=== PATIENT | female | born 1985 | race American Indian/Alaskan Native ===

== ENCOUNTER 2021-01-20 12:45 | Day surgery (SDC) | payer OTHER ==
[~2021-01-20 12:45] MED LIST: ACETAMINOPHEN 500 MG TAB PO SCH; BUPIVACAINE/PF (0.5%) 5 MG/1 ML 30 ML VIAL INFILTRATI ONE; LACTATED RINGERS 1,000 ML IV SCH; MIDAZOLAM 2 MG/2 ML INJ IV NR; SODIUM CHLORIDE 0.9% IRR 1,500 ML BOTTLE IR ONE
[2021-01-20] MEDS ORDERED: BUPIVACAINE/PF (0.5%) 5 MG/1 ML 30 ML VIAL INFILTRATI ONE ×2 (13:02→14:36)
[2021-01-20] MEDS ORDERED: SCOPOLAMINE TRANSDERMAL PATCH 72 HR TD ONE (13:32)
[2021-01-20] MEDS ORDERED: oxyCODONE /ACETAMINOPHEN 5-325MG TAB PO PRN (13:50)
[2021-01-20] MEDS ORDERED: ONDANSETRON 4 MG/2 ML INJ IV PRN (13:50)
[2021-01-20] MEDS ORDERED: HYDROmorphone 1 MG/1 ML INJ IV PRN (13:50)
--- NOTE | 2021-01-20 13:51 | Anesthesia Consultation ---
Anesthesia Consult and Med Hx Date of service: 01/20/21 - Airway Anesthetic Teeth Evaluation: Good ROM Head & Neck: Adequate Mental/Hyoid Distance: Adequate Mallampati Class: Class II Intubation Access Assessment: Probably Good - Pre-Operative Health Status ASA Pre-Surgery Classification: ASA1 Proposed Anesthetic Plan: General - Pulmonary Hx Smoking: No Hx Respiratory Symptoms: No - Cardiovascular System Hx Hypertension: No - Central Nervous System CVA: No - Endocrine Hx Renal Disease: No Hx Liver Disease: No Hx Insulin Dependent Diabetes: No Hx Non-Insulin Dependent Diabetes: No Hx Thyroid Disease: No - Additional Comments Anesthesia Medical History Comments: No hx anesthetic complications.
--- NOTE | 2021-01-20 13:51 | Anesthesia Day of Surgery ---
Anesthesia Day of Surgery - Day of Surgery Patient Examined: Yes Patient H&P Reviewed: Yes Patient is NPO: Yes
[2021-01-20] MEDS ORDERED: ceFAZolin/Water 2 GM/20 ML 2 GM/20 ML SYRINGE IV ONE (13:54)
[2021-01-20] MEDS ORDERED: HEPARIN 5,000 UNIT/1 ML VIAL ONE (13:55)
[2021-01-20] MEDS ORDERED: ceFAZolin/STERILE WATER 2 GM/20 ML SYRINGE IV NR (14:00)
[2021-01-20] MEDS ORDERED: SCOPOLAMINE TRANSDERMAL PATCH 72 HR TD NR (14:00)
[2021-01-20] MEDS ORDERED: HEPARIN 5,000 UNIT/1 ML VIAL SUB-Q NR (14:00)
[2021-01-20] MEDS ORDERED: fentaNYL 100 MCG/2 ML INJ ONE (14:06)
[2021-01-20] MEDS ORDERED: propofoL 200 MG/20 ML VIAL IV ONE (14:07)
[2021-01-20] MEDS ORDERED: ONDANSETRON 4 MG/2 ML INJ ONE (14:27)
[2021-01-20] MEDS ORDERED: HYDROmorphone 1 MG/1 ML INJ ONE (14:27)
[2021-01-20] MEDS ORDERED: dexAMETHasone 20 MG/5 ML VIAL ONE (14:27)
[2021-01-20] MEDS ORDERED: KETOROLAC 30 MG/1 ML INJ ONE (14:27)
[2021-01-20] MEDS ORDERED: SODIUM CHLORIDE 0.9% IRR 1,500 ML BOTTLE IR ONE (14:36)
--- NOTE | 2021-01-20 14:43 | Procedure Note ---
Date of procedure: 01/20/21 Pre-op diagnosis: left axillary abscess Post-op diagnosis: same Procedure: I&D of left axillary abscess Description of procedure: Pt was placed supine on the OR table. General anesthesia was administered. Left arm was abducted to [address] Left axilla was prepped and draped. The redundant skin and SQ tissue was excised and the abscess drained with the Bovie. Hemostasis of bleeding was obtained with the Bovie. Wound was irrigated with warm saline. Wound was packed open with a dilute Betadine moistened Kerlix roll followed by dry 4 X 4's and Tegaderm. Pt tolerated the procedure well. Pt was taken to PACU in stable condition. Anesthesia: other (LMA) Surgeon: SELENA STEEN Estimated blood loss: minimal Pathology: list (Left axillary skin and SQ) Specimen disposition: to lab Condition: stable Disposition: PACU
--- NOTE | 2021-01-20 16:51 | Post Anesthesia Evaluation ---
- Post Anesthesia Evaluation Patient Participated: Yes Airway Patent: Yes Stable Respiratory Function: Yes Nausea/Vomiting: No Temp > 96.8F: Yes Pain Manageable: Yes Adequeate Hydration: Yes Anesthesia Complications: No
[2021-01-20 18:59] VITALS: BP 112/72
== END 2021-01-20 12:46 | disposition home or self-care (01) ==
LOC: OR 12:45
PROVIDERS: ATTEND Surgery
DX: L02.412 Cutaneous abscess of left axilla (principal); Z79.899 Other long term (current) drug therapy; Z98.891 History of uterine scar from previous surgery; Z87.442 Personal history of urinary calculi; Z72.89 Other problems related to lifestyle; Z98.890 Other specified postprocedural states
CPT/HCPCS: 10060; 81025; 82962; 88304; J0690; J1100; J1170; J1644; J1885; J2250; J2405; J2704; J3010; J7120